=== PATIENT | male | born 1980 | race Caucasian/White ===

== ENCOUNTER 2017-12-08 23:59 | Emergency (ER) | payer SELFPAY ==
[2017-12-09] MEDS ORDERED: Adacel (T-DAP) 0.5 ML VIAL ONE (00:12)
[2017-12-09] MEDS ORDERED: Sulfameth/Trimethoprim DS 800-160mg TAB ONE (01:24)
--- NOTE | 2017-12-09 07:31 | RAD ---
RIGHT HAND 3 VIEWS: Date: 12/09/17 Bandages are seen around the fingers, but no opaque foreign bodies were appreciated in the soft tissu es. No fractures seen. IMPRESSION: No acute bony finding. POS: HOME
--- NOTE | 2017-12-09 07:33 | RAD ---
RIGHT FOREARM 2 VIEWS: Date: 12/09/17 No fractures were present. There were two rounded opaque foreign bodies or calcifications in the soft tissues of the mid forearm. They are located posterolaterally. I cannot tell if they were preexistin g calcifications in the soft tissues or if they are foreign bodies related to recent trauma. Correlat e location with exact site of laceration. The patient's laceration appears to be mainly anterior on t he film and remote from these objects. IMPRESSION: Soft tissue calcifications versus foreign bodies as noted. Bones intact. CODE T. POS: HOME
== END 2017-12-09 01:25 | disposition home or self-care (01) ==
LOC: BURERS 23:59
DX: S51.811A Laceration without foreign body of right forearm, initial encounter (principal); S61.212A Laceration without foreign body of right middle finger without damage to nail, initial encounter; W25.XXXA Contact with sharp glass, initial encounter
CPT/HCPCS: 12002; 90471; 90715; J2001

== ENCOUNTER 2018-07-04 15:21 | Emergency (ER) | payer SELFPAY ==
[2018-07-04] MEDS ORDERED: Ketorolac Tromethamine 60 MG/2 ML VIAL ONE (15:38)
[2018-07-04] MEDS ORDERED: Cyclobenzaprine 10 MG TAB ONE (15:38)
== END 2018-07-04 15:54 | disposition home or self-care (01) ==
LOC: BURERS 15:21
DX: M62.838 Other muscle spasm (principal); F17.210 Nicotine dependence, cigarettes, uncomplicated
CPT/HCPCS: 96372; J1885

== ENCOUNTER 2018-08-27 16:57 | Emergency (ER) | payer SELFPAY ==
[2018-08-27 18:08] LABS: ALT (SGPT) 37 U/L (8-55); AST (SGOT) 26 U/L (5-34); Albumin 3.6 g/dL (3.5-5.0); Alkaline Phosphatase 114 U/L (40-150); Anion Gap 11 mmol/L (10-20); BUN (Urea Nitrogen) 15 mg/dL (8.9-20.6); Bilirubin, Total 0.2 mg/dL (0.2-1.2); Calc. Creatinine Clearance 0 mL/min (70-130); Calcium 8.8 mg/dL (7.8-10.44); Carbon Dioxide 27 mmol/L (22-29); Chloride 105 mmol/L (98-107); Estimated GFR-MDRD 84; Globulin 3.2 g/dL (2.4-3.5); Glucose 73 mg/dL (70-105); Potassium 4.4 mmol/L (3.5-5.1); Protein, Total 6.8 g/dL (6.0-8.3); Sodium 139 mmol/L (136-145)
[2018-08-27 18:12] LABS: Hemoglobin 12.7 g/dL (14.0-18.0); Lymphocytes 31 % (21-51); MDiff Complete? YES; Mean Corpuscular HGB CONC 30.2 g/dL (32.0-36.0); Mean Corpuscular Hemoglobin 26.5 pg (27.0-31.0); Mean Corpuscular Volume 87.8 fL (78.0-98.0); Mean Platelet Volume 7.8 fL (7.4-10.4); Monocytes 8 % (0-10); Neutrophil 61 % (42-75); Platelet Count 275 thou/uL (130-400); RBC Distribution Width 15.5 % (11.5-14.5); Red Blood Cell (RBC) Count 4.77 mill/uL (4.70-6.10); White Blood Cell (WBC) Count 8.2 thou/uL (4.8-10.8)
[2018-08-27] MEDS ORDERED: Furosemide 40 MG/4 ML VIAL ONE (18:25)
--- NOTE | 2018-08-27 18:35 | RAD ---
PORTABLE CHEST: 08/27/18 An AP portable film at 1756 shows the heart to be upper normal in size. There is no congestion, pleur al effusion, or edema. No focal pulmonary infiltrate was seen. IMPRESSION: Borderline heart size. POS: HOME
== END 2018-08-27 19:20 | disposition home or self-care (01) ==
LOC: BURERS 16:57
DX: I10 Essential (primary) hypertension (principal); R60.0 Localized edema; M10.9 Gout, unspecified; E66.9 Obesity, unspecified; F41.9 Anxiety disorder, unspecified; F17.210 Nicotine dependence, cigarettes, uncomplicated
CPT/HCPCS: 71045; 80053; 83880; 84484; 85025; 93005; 94760; 96374; J1940

== ENCOUNTER 2021-07-08 13:13 | Emergency (ER) | payer SELFPAY ==
[2021-07-08] MEDS ORDERED: Iopamidol 370 76% 100 ML VIAL FS ONE (13:14)
[2021-07-08 13:48] LABS: #Basophils 0.1 thou/uL (0.0-0.2); #Eosinphils 0.2 thou/uL (0.0-0.7); #Lymphocytes 1.7 thou/uL (1.20-3.40); #Monocytes 0.7 thou/uL (0.11-0.59); #Neutrophils 5.7 thou/uL (1.40-6.50); %Basophils 1.5 % (0.0-1.0); %Monocytes 8.1 % (0.0-10.0); %Neutrophils 68.4 % (42.0-75.0); Hemoglobin 13.1 g/dL (14.0-18.0); Mean Corpuscular HGB CONC 31.4 g/dL (32.0-36.0); Mean Corpuscular Hemoglobin 28.8 pg (27.0-31.0); Mean Corpuscular Volume 91.9 fL (78.0-98.0); Mean Platelet Volume 7.9 fL (7.4-10.4); Platelet Count 334 thou/uL (130-400); RBC Distribution Width 14.1 % (11.5-14.5); Red Blood Cell (RBC) Count 4.53 mill/uL (4.70-6.10); White Blood Cell (WBC) Count 8.3 thou/uL (4.8-10.8)
[2021-07-08 14:05] LABS: ALT (SGPT) 19 U/L (8-55); AST (SGOT) 17 U/L (5-34); Albumin 3.6 g/dL (3.5-5.0); Alkaline Phosphatase 101 U/L (40-110); Anion Gap 13 mmol/L (10-20); BUN (Urea Nitrogen) 19 mg/dL (8.9-20.6); Bilirubin, Total 0.2 mg/dL (0.2-1.2); Calc. Creatinine Clearance 0 mL/min (70-130); Calcium 8.5 mg/dL (7.8-10.44); Carbon Dioxide 28 mmol/L (22-29); Chloride 106 mmol/L (98-107); Globulin 3.3 g/dL (2.4-3.5); Glucose 99 mg/dL (70-105); Potassium 4.5 mmol/L (3.5-5.1); Protein, Total 6.9 g/dL (6.0-8.3); Sodium 142 mmol/L (136-145)
[2021-07-08] MEDS ORDERED: Furosemide 40 MG TAB ONE (16:21)
== END 2021-07-08 16:30 | disposition home or self-care (01) ==
LOC: BURERS 13:13
DX: R60.0 Localized edema (principal); I10 Essential (primary) hypertension; F17.210 Nicotine dependence, cigarettes, uncomplicated
CPT/HCPCS: 71045; 71275; 80053; 83880; 84484; 85025; 93005; Q9967

== ENCOUNTER 2021-10-03 08:58 | Emergency (ER) | payer SELFPAY ==
[2021-10-03] MEDS ORDERED: predniSONE 20 MG TAB ONE (09:59)
== END 2021-10-03 10:02 | disposition home or self-care (01) ==
LOC: BURERS 08:58
DX: M10.9 Gout, unspecified (principal); I10 Essential (primary) hypertension; F17.210 Nicotine dependence, cigarettes, uncomplicated
CPT/HCPCS: J7512